=== PATIENT | female | born 1985 | race Caucasian/White ===

== ENCOUNTER 2018-12-15 10:29 | Outpatient (CLI) | payer BC ==
[2018-12-15 12:20] VITALS: BP 123/70; PULSE 102; RESP 18; TEMP 97.1
--- NOTE | 2018-12-17 06:17 | P.MSEPDOC ---
Presenting Problems - Arrival Data Date of Arrival on Unit: 12/15/18 Time of Arrival on Unit: 10:30 Mode of Transport: Ambulatory - Complaint OB-Reason for Admission/Chief Complaint: Headache, Dizziness Comment: anxiety, lightheadedness, nausea, sob when up and moving. Medical History - Information : 2 Para: 1 Term: 1 : 0 Abortions: Spontaneous or Elective: 0 Number of Living Children: 1 - Gestational Age Gestational Age by NILDA (wks/days): 29 Weeks and 3 Days - History Comment: none Review of Systems - Review of Systems Constitutional: No problems Breast: No problems ENT: No problems Cardiovascular: No problems Respiratory: No problems Gastrointestinal: No problems Genitourinary: No problems Musculoskeletal: No problems Neurological: No problems Skin: No problems Vital Signs - Temperature Temperature: 97.1 F Temperature Source: Oral - Pulse Right Brachial Pulse Rate: 102 Pulse Assessment Method: Automatic Cuff - Respirations Respiratory Rate: 18 Oxygen Delivery Method: Room Air - Blood Pressure Right Arm Blood Pressure: 123/70 Blood Pressure Mean: 87 Blood Pressure Source: Automatic Cuff Medical Screen Scoring (Pre) - Cervical Exam Dilation: Exam Deferred Effacement: Exam Deferred Membranes: Intact - Uterine Contractions Frequency: N/A Duration: N/A Intensity: N/A - Maternal Vital Signs Maternal Temperature: N/A Maternal Blood Pressure: N/A Signs of Preeclampsia: N/A Maternal Respirations: N/A - Pain Assessment Pain Scale Used: Numeric (1 - 10) Pain Intensity: 0 - Maternal Trauma Maternal Trauma: N/A - Assessment Baseline FHR: 145 Heart Rate - NICHD Category: Category I (Normal) = 0 NST: Reactive Position: N/A Station: N/A - Total Score Total Score (Pre): 0 - Level of Risk Level of Risk: Low (0-5) Physician Notification (Pre) - Physician Notified Physician/Practitioner Notifed:: yes Spoke With: sophia Rodriges Order Received: Yes - Notification Comment Comment: discharge home Disposition - Disposition OB Disposition: Discharge to home Discharge Date: 12/15/18 Discharge Time: 11:20 I agree with the RN Medical Screening Exam: Yes Risk & Benefit of care provided described in d/c instruction: Yes Diagnosis: RELATED CONDITIONS, UNSPECIFIED, THIRD TRIMESTER
== END 2018-12-15 11:20 | disposition home or self-care (01) ==
LOC: FBPOP 10:29
PROVIDERS: ATTEND Obstetrics & Gynecology
DX: O26.93 Pregnancy related conditions, unspecified, third trimester (principal); Z3A.29 29 weeks gestation of pregnancy
CPT/HCPCS: 59025; 99213

== ENCOUNTER → 2018-12-30 | Outpatient (CLI) | payer BC ==
[2018-12-30 09:44] LABS: HCT 33.8 % (34.0-46.0); HGB 11.4 gm/dL (11.4-16.0); MCH 31.6 pg (25.0-35.0); MCHC 33.8 g/dL (31.0-37.0); MCV 93.5 fL (80.0-100.0); Mean Platelet Volume 7.5; Platelet Count 210 k/uL (150-450); RBC 3.62 m/uL (3.80-5.40); RDW 13.6 % (11.5-15.5); WBC 10.9 k/uL (3.8-10.6)
== END | disposition home or self-care (01) ==
LOC: LABWHC1 08:29
PROVIDERS: ATTEND Obstetrics & Gynecology
DX: Z34.83 Encounter for supervision of other normal pregnancy, third trimester (principal); Z3A.00 Weeks of gestation of pregnancy not specified
CPT/HCPCS: 36415; 82950; 85027

== ENCOUNTER 2019-02-25 23:16 | Inpatient (IN) | payer BC ==
[2019-02-26] MEDS ORDERED: METHYLERGONOVINE 0.2 MG/ML 1 ML AMP IM PRN (00:34)
[2019-02-26] MEDS ORDERED: OXYTOCIN 10 UNIT/ML 1 ML VIAL IM PRN (00:34)
[2019-02-26] MEDS ORDERED: LIDOCAINE 0.5% (PF) 5 MG/ML (50 ML SDV) SQ PRN (00:34)
[2019-02-26] MEDS ORDERED: CARBOPROST TROMETHAMINE 250 MCG/ML 1 ML AMP IM PRN (00:34)
[2019-02-26] MEDS ORDERED: TERBUTALINE 1 MG/ML VIAL SQ PRN (00:34)
[2019-02-26] MEDS: LACTATED RINGERS 1,000 ML IV SCH ×2 (00:51→10:03)
[2019-02-26 01:08] VITALS: BMI 35.2
[2019-02-26] MEDS: CLINDAMYCIN 900 MG in DEXTROSE 5% IN WATER 50 ML IVPB SCH ×4 (01:08→07:11)
[2019-02-26 01:17] LABS: Basophils % (A) 0 %; Eosinophils # (A) 0.1 k/uL (0-0.7); Eosinophils % (A) 1 %; HCT 36.5 % (34.0-46.0); HGB 12.2 gm/dL (11.4-16.0); Lymphocytes # (A) 2.4 k/uL (1.0-4.8); Lymphocytes % (A) 22 %; MCH 31.4 pg (25.0-35.0); MCHC 33.5 g/dL (31.0-37.0); MCV 93.8 fL (80.0-100.0); Mean Platelet Volume 7.3; Monocytes # (A) 0.4 k/uL (0-1.0); Monocytes % (A) 3 %; Neutrophils # (A) 7.8 k/uL (1.3-7.7); Neutrophils % (A) 71 %; Platelet Count 194 k/uL (150-450); RBC 3.89 m/uL (3.80-5.40); RDW 13.2 % (11.5-15.5)
[2019-02-26] MEDS ORDERED: fentaNYL (PF) 50 MCG/ML 5 ML AMP ONE (01:51)
[2019-02-26] MEDS ORDERED: ROPIVACAINE 5MG/ML 20ML VIAL ONE (01:51)
[2019-02-26] MEDS ORDERED: SODIUM CHLORIDE 0.9% 100 ML BAG ONE (01:51)
[2019-02-26 04:14] LABS: Amphetamine Screen,Urine Not Detected (NotDetected); Barbiturate Screen,Urine Not Detected (NotDetected); Benzodiazepines Screen,Urine Not Detected (NotDetected); Cocaine Screen,Urine Not Detected (NotDetected); Methadone Screen, Urine Not Detected (NotDetected); Opiate Screen,Urine Not Detected (NotDetected); Oxycodone Screen, Urine Not Detected (NotDetected); Phencyclidine Screen,Urine Not Detected (NotDetected); Tricyclic Antidepressant,Urine Not Detected (NotDetected); Urn Cannabinoid Scrn Not Detected (NotDetected)
[2019-02-26] MEDS ORDERED: ROPIVACAINE 100 MG, fentaNYL (PF) 200 MCG in SODIUM CHLORIDE 0.9% 76 ML EPIDURAL ONE (06:07)
--- NOTE | 2019-02-26 07:34 | P.HPOB ---
History of Present Illness H&P Date: 02/26/19 Chief Complaint: Intrauterine at term: Active labor Sayda is a 33-year-old at 39 weeks gestation who arrives in active labor making cervical change. She was initially dilated to 5 at presentation and an hour later she was dilated to 6. I did recommend evaluate the patient she was in stable condition voicing no complaints and xochilt every approximately 3- 4 minutes. Contractions were not terribly strong but she did have a history of group B strep positive and the decision was made to try and get her prophylaxis despite having a negative screening earlier in this . She does have a penicillin ALLERGY so Cleocin was ordered. Pertinent labs include O+ blood type Rh and it was negative, rubella immune, hepatitis B surface antigen was ne gative. A discussion was held with her on deciding whether not to once the first dose been about was in rupture membranes or allow her to labor spontaneously, she was expressing the opinion that it would be nice to get her second dose of antibiotics in therefore she was left intact despite the fact that didn't expect sure to make it through the night without having the baby before the second dose of antibiotics. However this morning she has changed from 6 to almost 9 cm 80% effaced and -2 station still somewhat posterior in the second dose of and bikes going in. We'll likely start some Pitocin and artificial rupture membranes soon to help labor progress. On physical exam vital signs are stable and afebrile. Heart regular, lungs clear, extremities are without pain. Abdomen soft nontender. Positive bowel sounds are noted. Extremities are without pain. Gravid uterus is noted. Categ ory 1 tracing is noted. Assessment intrauterine at term. Plan expect spontaneous vaginal delivery. She anticipates use of an epidural for analgesia. Past Medical History Past Medical History: No Reported History History of Any Multi-Drug Resistant Organisms: None Reported Past Surgical History: No Surgical Hx Reported Past Anesthesia/Blood Transfusion Reactions: No Reported Reaction Past Psychological History: Anxiety Smoking Status: Never smoker Past Alcohol Use History: None Reported Past Drug Use History: Marijuana - Past Family History Mother Family Medical History: Cancer Medications and Allergies Home Medications Medication Instructions Recorded Confirmed Type [id number] Acid 1 tab PO DAILY 10/28/15 02/25/19 History [-U Capsule (formulary)] Allergies Allergy/AdvReac Type Severity Reaction Status Date / Time Penicillins Allergy Rash/Hives Verified 02/25/19 23:36 Exam Osteopathic Statement: *. No significant issues noted on an osteopathic struc tural exam other than those noted in the History and Physical/Consult. Vital Signs Temp Pulse Resp BP Pulse Ox 02/26/19 00:51 98.4 F 105 H 16 129/83 98 Intake and Output 02/25/19 02/26/19 02/26/19 22:59 06:59 14:59 Intake Total 200 Output Total 700 Balance -500 Intake: Oral 200 Output: Urine 700 Other: Weight 92.986 kg Results Result Diagrams: 02/26/19 00:50 Abnormal Lab Results - Last 24 Hours (Table) 02/26/19 Range/Units 00:50 WBC 11.0 H (3.8-10.6) k/uL Neutrophils # 7.8 H (1.3-7.7) k/uL
[2019-02-26] MEDS ORDERED: OXYTOCIN 30 UNITS/500 ML NS 30 UNIT in SALINE 1 500ML.BAG IV SCH (08:00)
[2019-02-26] MEDS ORDERED: SIMETHICONE 80 MG CHEWABLE PO PRN (09:41)
[2019-02-26] MEDS ORDERED: diphenhydrAMINE 25 MG CAP PO PRN (09:41)
[2019-02-26] MEDS ORDERED: ACETAMINOPHEN TAB 325 MG TAB PO PRN (09:41)
[2019-02-26] MEDS ORDERED: diphenhydrAMINE 50 MG CAP PO PRN (09:41)
[2019-02-26] MEDS ORDERED: HYDROCORTISONE 2.5% RECTAL CREAM 30 GM TUBE RECTAL PRN (09:41)
[2019-02-26] MEDS ORDERED: LANOLIN CREAM 5 GM TUBE TOPICAL PRN (09:41)
[2019-02-26] MEDS ORDERED: WITCH HAZEL 1 EACH MED..PAD TOPICAL PRN (09:41)
[2019-02-26] MEDS ORDERED: OXYTOCIN 20 UNITS/1000 ML NS 1,000 ML IV SCH (09:41)
[2019-02-26] MEDS ORDERED: diphenhydrAMINE 50 MG/ML 1 ML VIAL IVP PRN ×2 (09:41)
[2019-02-26] MEDS ORDERED: BENZOCAINE/MENTHOL SPRAY 1 GM/SPRAY AEROSOL TOPICAL PRN (09:41)
[2019-02-26] MEDS ORDERED: ZOLPIDEM 5 MG TAB PO PRN (09:41)
--- NOTE | 2019-02-26 09:51 | P.PROBDLV ---
Vaginal Delivery Note - . Vaginal Delivery Note: The patient progressed to complete dilation after oxytocin augmentation of labor and artificial rupture membranes with clear fluid noted. She did receive epidural anesthesia. Once reaching complete, she began pushing. Infant's head came to a crown. With one further push, the infant's head delivered across the perineum in a left occiput anterior lie followed by the anterior shoulder. Nose and mouth are bulb suctioned at the perineum. With one further push, the remainder the easily delivered as an is placed on mother's abdomen. Brisk cry was noted immediately. Cord was clamped and cut and was taken to warmer for evaluation. A viable male infant is noted with scores of 9 at 1 minute and 9 at 5 minutes and weight of 9 lbs. 6 oz. Cord blood was obtained secondary to O+ blood type. Placenta delivers shortly thereafter, intact, with a three-vessel cord. Uterus contracted fairly well after oxytocin was given and uterine massage was carried out. Inspection of the perineum reveals a partial third-degree perineal laceration. This area is anesthetized with 1% lidocaine and then sutured with 3-0 and 2-0 Vicryl suture in the usual multilayer fashion. Estimated blood loss is approximately 200 mL's. Both mother and infant are in stable condition.
[2019-02-26] MEDS: IBUPROFEN 600 MG TAB PO PRN ×2 (15:29→23:04)
[2019-02-26] MEDS: SENNOSIDES-DOCUSATE SODIUM 1 EACH TAB PO SCH (19:32)
[2019-02-27 06:34] LABS: Basophils % (A) 0 %; Eosinophils # (A) 0.1 k/uL (0-0.7); Eosinophils % (A) 1 %; HCT 31.9 % (34.0-46.0); Lymphocytes # (A) 1.9 k/uL (1.0-4.8); Lymphocytes % (A) 20 %; MCH 32.3 pg (25.0-35.0); MCHC 34.6 g/dL (31.0-37.0); MCV 93.3 fL (80.0-100.0); Mean Platelet Volume 8.7; Monocytes # (A) 0.3 k/uL (0-1.0); Monocytes % (A) 3 %; Neutrophils # (A) 7.2 k/uL (1.3-7.7); Neutrophils % (A) 74 %; Platelet Count 152 k/uL (150-450); RBC 3.42 m/uL (3.80-5.40); RDW 13.9 % (11.5-15.5); WBC 9.7 k/uL (3.8-10.6)
[2019-02-27] MEDS: IBUPROFEN 600 MG TAB PO PRN (06:51)
--- NOTE | 2019-02-27 08:02 | P.DS ---
Providers Date of admission: 02/26/19 00:43 Expected date of discharge: 02/27/19 Attending physician: Elenita Mclain Primary care physician: Stated None Hospital Course: This is a 33-year-old female 2 para 1 at 39-6/7 weeks who presented in active labor. She underwent artificial rupture membranes with clear fluid noted and did receive oxytocin augmentation of labor. She also had an epidural anesthesia. She delivered vaginally on 02/26/2019 a viable male with scores of 9 at 1 minute and 9 at 5 minutes and weight of 9 lbs. 6 oz. She did have repair of a partial third-degree laceration. Her course has been uncomplicated. Lochia is decreasing. Pain is fairly well controlled. Vital signs are stable. Abdomen is soft with fundus firm and nontender. Extremities show negative Homans. Impression is status post vaginal delivery day #1. Plan is to discharge home today. Routine instructions are given. She is advised follow-up in the office in 6 weeks for a check. She is advised to call the office if she has any further questions or concerns prior to her appointment time. She will be given a prescription for a breast pump. She will also be given a prescription for ibuprofen. Procedures: Oxytocin augmentation of labor Spontaneous vaginal delivery of a viable male on 02/26/2019 Patient Condition at Discharge: Stable Plan - Discharge Summary New Discharge Prescriptions: New Ibuprofen [Motrin] 600 mg PO Q6HR PRN #60 tab PRN Reason: Mild Pain Or Fever >= 100.5 Continue Yjl-Eppw-Dntde Acid [-U Capsule (formulary)] 1 tab PO DAILY Discharge Medication List Vso-Gzqx-Yjwly Acid [-U Capsule (formulary)] 1 tab PO DAILY 10/28/15 [History] Ibuprofen [Motrin] 600 mg PO Q6HR PRN #60 tab 02/27/19 [Rx] Follow up Appointment(s)/Referral(s): Elenita Mclain DO [Doctor of Osteopathic Medicine] - 1 Week Activity/Diet/Wound Care/Special Instructions: Instructions 1. Do not begin any exercise program for 3 weeks. 2. Do not resume sexual relations for 3 weeks or longer if uncomfortable. 3. You may take tub baths or showers at any time. 4. You may use tampons if desired after 3 weeks. 5. Keep the area of episiotomy (stitches) clean and dry. 6. If you are not nursing, wear a good fitting, supportive bra during the day and limit fluid intake for at least 1 week to prevent breast engorgement. 7. Call the office, [phone], within the next week to make appointment for your 6 week checkup if it has not already been made. 8. Report any of the following occurrences to the doctor promptly: a. Heavy, excessive bleeding b. Chills, fever c. Burning or frequency of urination d. Pain or redness and breasts if nursing e. Increasing pain or swelling in episiotomy (stitches). In addition to the above instructions, the following additional should be followed: 1. No heavy lifting or straining (exercising) until after 6 week checkup. 2. Keep abdominal incision clean and dry: You may wear a dressing if more comfortable. 3. Make office appointment for 10 days after going home or as instructed by her doctor. Discharge Disposition: HOME SELF-CARE
[2019-02-27 09:06] VITALS: BP 119/66; PULSE 105; RESP 18; TEMP 98.7
[2019-02-27] MEDS: SENNOSIDES-DOCUSATE SODIUM 1 EACH TAB PO SCH (13:03)
== END 2019-02-27 13:10 | disposition home or self-care (01) | DRG 768 ==
LOC: FBPOP 23:16 → 4FBP 02-26 00:43
PROVIDERS: ADMIT Obstetrics & Gynecology; ATTEND Obstetrics & Gynecology
PROC: 10E0XZZ Delivery of Products of Conception, External Approach (ICD-10-PCS; principal; 2019-02-26)
PROC: 0DQR0ZZ Repair Anal Sphincter, Open Approach (ICD-10-PCS; 2019-02-26)
PROC: 00HU33Z Insertion of Infusion Device into Spinal Canal, Percutaneous Approach (ICD-10-PCS; 2019-02-26)
PROC: 3E0R3BZ Introduction of Anesthetic Agent into Spinal Canal, Percutaneous Approach (ICD-10-PCS; 2019-02-26)
DX: O26.893 Other specified pregnancy related conditions, third trimester (principal); Z37.0 Single live birth; O70.20 Third degree perineal laceration during delivery, unspecified; Z67.41 Type O blood, Rh negative; O99.344 Other mental disorders complicating childbirth; F41.9 Anxiety disorder, unspecified; Z3A.39 39 weeks gestation of pregnancy; Z88.0 Allergy status to penicillin; Z80.9 Family history of malignant neoplasm, unspecified
CPT/HCPCS: 59025; 80306; 85025; 86850; 86900; 86901; 99213